=== PATIENT | female | born 1960 | race Caucasian/White ===

== ENCOUNTER → 2017-11-22 | Outpatient (CLI) | payer OTHER ==
[~2017-11-22] MED LIST: ALL100 PO; CITA-145 PO; COM14R IH; DOXE25CA45 PO; ESCI20TA38 PO; LEVO175T37 PO; LOR5/325 PO; MAXALT PO; PENT100C10 PO; RAL60 PO; RIZA10TA PO; TOLT4CAP13 PO; TRA50 PO
--- NOTE | 2017-11-25 10:55 | RADIOLOGY IMAGING REPORT ---
[place] [facility] [place] NAME: BONY GONZALEZ : [id number] MR: [id number] V: [id number] EXAM DATE: ORDERING PHYSICIAN: MARY BERGERON TECHNOLOGIST: Marly Damian PROCEDURE:BILATERAL DIGITAL SCREENING MAMMOGRAM WITH CAD ASSISTED INTERPRETATION & 3D TOMOSYNTHESIS COMPARISON:Prior mammograms 08/02/15, 06/26/13, 08/28/12, 06/06/12, 05/30/11. INDICATIONS:screening FINDINGS: Mildly heterogeneous fibroglandular tissue is seen throughout the breasts. The parenchymal pattern has remained stable allowing for difference in mammographic technique & patient positioning. There is no evidence of malignant appearing mass, malignant appearing calcifications or other secondary sign of malignancy in either breast. DIAGNOSTIC CATEGORY 1--NEGATIVE. RECOMMENDATIONS: ROUTINE MAMMOGRAM AND CLINICAL EVALUATION. IMPRESSION: BIRADS 1: Negative. No significant abnormality is seen. Dictated by: Jenifer Bennett M.D. on 11/22/2017 at 14:56 Transcribed by: MADDI on 11/22/2017 at 15:08 Approved by: Jenifer Bennett M.D. on 11/25/2017 at 10:54 [facility]
== END ==
LOC: MAMO 11-21 15:31
PROVIDERS: ATTEND Family Medicine
DX: Z12.31 Encounter for screening mammogram for malignant neoplasm of breast (principal); Z00.00 Encounter for general adult medical examination without abnormal findings; E89.0 Postprocedural hypothyroidism
CPT/HCPCS: 77063; 77067

== ENCOUNTER → 2018-01-28 | Outpatient (CLI) | payer OTHER ==
--- NOTE | 2018-01-28 14:46 | RADIOLOGY IMAGING REPORT ---
FACILITY: [facility] [place] PATIENT NAME: Dee Dee Pradhan : 1960 MR: [id number] V: [id number] EXAM DATE: ORDERING PHYSICIAN: MARY BERGERON TECHNOLOGIST: [place] [facility] [place] Dee Pradhan : 1960 Visit/Account:[id number] Date of Sevice: 01/28/2018 VENOUS DOPP LOW RIGHT EXTREMITY HISTORY: Knee and calf swelling COMPARISON: None. FINDINGS: Grayscale, duplex and color Doppler interrogation of the right lower extremity deep veins from common femoral vein to proximal calf was completed. The greater saphenous vein in the proximal thigh was ev aluated using similar technique. Common femoral vein - Negative. Femoral vein - Negative. Deep femoral vein - Negative. Popliteal vein - Negative. Visualized deep calf veins - Negative. Popliteal fossa: Negative. Greater saphenous vein in the proximal thigh: Negative. IMPRESSION: Negative right lower extremity venous ultrasound Report Dictated By: Jorge Kamara at 01/28/2018 2:43 PM Report E-Signed By: Jorge Kamara at 01/28/2018 2:43 PM WSN:[email or web address]
== END ==
LOC: LAB 10:49
PROVIDERS: ATTEND Family Medicine
DX: R22.41 Localized swelling, mass and lump, right lower limb (principal)

== ENCOUNTER → 2018-03-06 | Day surgery (SDC) | payer OTHER ==
[2018-03-06] VITALS (7 sets, daily range): BP systolic 118–133; BP diastolic 72–85
[~2018-03-06] VITALS: Ht 175.3 cm; Wt 103.4 kg
[~2018-03-06] MED LIST changes: +LEVO112T44 PO; +LIDOCAINE/SOD BICARB 8.4% SYR ID ONE; +MTH/1CAP2 PO; +NORMOSOL R SOLN(*) 1000 ML BAG 1,000 ML IV PRN; +PROPOFOL EMUL(*) 10MG/ML 20 ML 20 ML ONE
== END ==
LOC: OR 01:43
PROVIDERS: ATTEND Family Medicine
DX: Z12.11 Encounter for screening for malignant neoplasm of colon (principal)
CPT/HCPCS: 00812; 45378; J2704